=== PATIENT | male | born 1990 | race Asian ===

== ENCOUNTER 2022-12-09 07:58 | Outpatient (CLI) | payer OTHER ==
--- NOTE | 2022-12-09 16:42 | XRAY Report ---
PROCEDURE: Hand 3 View RT INDICATIONS: DEQUERVAINS TENOSYNOVITIS TECHNIQUE: 3 views of the hand(s) acquired. COMPARISON: None. FINDINGS: Bones: No fractures or dislocations. No suspicious bony lesions. Soft tissues: No suspicious soft tissue calcifications or masses. IMPRESSION: No acute bony abnormality. Reviewed by: Carrie Cook MD on 12/09/2022 4:41 PM PDT Approved by: Carrie Cook MD on 12/09/2022 4:41 PM PDT Station ID: [id number]
== END 2022-12-09 07:59 | disposition home or self-care (01) ==
LOC: DI.N 07:58
PROVIDERS: ATTEND Registered Nurse
DX: M65.4 Radial styloid tenosynovitis [de Quervain] (principal)